=== PATIENT | female | born 1970 | race Caucasian/White ===

== ENCOUNTER 2019-10-24 07:35 | Outpatient (CLI) | payer OTHER, SELFPAY ==
--- NOTE | ~2019-10-24 | MM_ITS ---
EXAMINATION: MM screening kala BI w macho HISTORY: Screening TECHNIQUE: Craniocaudal and mediolateral oblique 3-D tomosynthesis images were obtained and synthetic 2-D images were generated. CAD analysis was submitted and interpreted. COMPARISON: Comparison to multiple prior studies sequentially, with oldest reviewed study dated 05/18. BREAST PARENCHYMAL COMPOSITION: The breasts are heterogeneously dense, which may obscure small masses . FINDINGS: There is no evidence of suspicious mass, calcification, or architectural distortion to sugg est malignancy in either breast. There has been no suspicious interval change. IMPRESSION: 1. No mammographic evidence of malignancy. 2. Recommend routine screening mammography in one year. BI-RADS Category 1: Negative Reviewed, dictated and finalized at location A.
== END 2019-10-24 07:36 | disposition home or self-care (01) ==
PROVIDERS: PCP Family Medicine; Visit Provider Physician Assistant
DX: Z12.31 Encounter for screening mammogram for malignant neoplasm of breast (principal)
CPT/HCPCS: 77063; 77067

== ENCOUNTER → 2020-06-09 03:43 | Outpatient (CLI) | payer OTHER, SELFPAY ==
[2020-06-09 20:31] LABS: SARS-CoV-2 RNA PCR Negative
== END ==
PROVIDERS: PCP Family Medicine; Visit Provider Internal Medicine Gastroenterology
DX: Z01.812 Encounter for preprocedural laboratory examination (principal); Z20.822 Contact with and (suspected) exposure to COVID-19
CPT/HCPCS: C9803; U0003; U0005

== ENCOUNTER 2020-06-12 01:40 | Day surgery (SDC) | payer OTHER, SELFPAY ==
[2020-06-03 15:22] VITALS: BMI 21.6
[2020-06-12 09:22] VITALS: BP 115/50; PULSE 66; RESP 16; TEMP 36.5; O2SAT 100; BMI 21.2
--- NOTE | 2020-06-12 09:38 | WPDANESEPPF ---
Anes - Initial Pre Proc Eval Procedure: Operation Date: 06/12/20 10:30 Proposed Procedures p Screening Colonoscopy - French Gresham MD Date/Time: 06/12/20 09:38 Surgeon: French Gresham MD Pre Op Diagnosis: neoplasm screening Patient Data Age: 49 Gender: F Height: 5 ft 5 in Weight: 57.9 kg Last Vital Signs Temp 97.7 F 06/12/20 09:22 Pulse 66 06/12/20 09:22 Resp 16 06/12/20 09:22 BP 115/50 L 06/12/20 09:22 Pulse Ox 100 06/12/20 09:22 Allergies Allergy/AdvReac Type Severity Reaction Status Date / Time No Known Allergies Allergy Mild Verified 06/12/20 09:21 Home Medications Medication Instructions Recorded Confirmed Type No Home Medications 09/23/19 06/12/20 History Patient hx anesthesia problems: none Family hx anesthesia problems: none PMFSH Past Medical History Medical History (Updated 06/12/20 @ 09:34 by Francis Carrion MD) Healthy adult Family History Family History Sibling Depression Grandparent Family history of Alzheimer's disease Social History Social History Smoking status: Never smoker Alcohol intake: current Drinks per week: 4 Substance use type: does not use Living arrangements: with family Gender identity (if verbalized by the patient): Female Spiritual care concerns: No Anes - Eval Final PreProcedure Day of Procedure 06/12/20 09:38 Patient weight: normal Heart: regular rate and rhythm Lungs: clear to auscultation Airway: Mallampati scale class II Neurological: alert and oriented Last oral intake: >/= 8 hours ASA classification: I Emergent: no Anesthetic plan: proceed Anesthesia type and monitoring: general GIVS and standard monitoring Informed Consent: The patient's anesthetic plan and its attendant risks and benefits were discussed with the patient/family/POA. Questions were solicited and answers provided to the satisfaction of the patient/family/POA.
[2020-06-12] MEDS: LACTATED RINGERS 1,000 ML 150 ML IV CONT (09:41)
--- NOTE | 2020-06-12 09:51 | PM.HPGS ---
History of Present Illness History of Present Illness Consent: Risks, benefits, and alternatives have been discussed and questions answered. Patient agrees to proceed with procedure. Chief complaint: neoplasm screening Narrative: Marita Ríos is a 49 year old female Referred for colon cancer screening. She is not aware of any family history of colon cancer or other colon diseases Review of Systems Review of Systems: All systems reviewed & are unremarkable except as noted in HPI and below PMFSH Past Medical History Medical History Healthy adult Family History Family History Sibling Depression Grandparent Family history of Alzheimer's disease Social History Social History Smoking status: Never smoker Alcohol intake: current Drinks per week: 4 Substance use type: does not use Living arrangements: with family Gender identity (if verbalized by the patient): Female Spiritual care concerns: No Meds Home Medications and Allergies Home Medications Medication Instructions Recorded Confirmed Type No Home Medications 09/23/19 06/12/20 History Allergies Allergy/AdvReac Type Severity Reaction Status Date / Time No Known Allergies Allergy Mild Verified 06/12/20 09:21 Vital Signs Vital Signs - 24 hr 06/12/20 09:22 Temperature 36.5 C Pulse Rate 66 Respiratory Rate 16 Blood Pressure 115/50 L Pulse Oximetry 100 Exam Resp: Auscultation: clear to auscultation bilaterally Cardio: Rate: regular rate Rhythm: regular rhythm GI: GI Palp: Yes Soft to palpation and No Tenderness to palpation present (GI) Assessment and Plan Assessment and plan (1) Colon cancer screening: Code(s): Z12.11 - Encounter for screening for malignant neoplasm of colon Status: Acute Assessment and Plan: Colonoscopy with possible biopsy or polypectomy or cautery or injection of substances.
[2020-06-12 10:51] VITALS: BP 79/44; PULSE 66; RESP 16; O2SAT 100
[2020-06-12 11:01] VITALS: BP 78/42; PULSE 64; RESP 16; O2SAT 100
[2020-06-12 11:11] VITALS: BP 88/52; PULSE 63; RESP 16; O2SAT 100
== END 2020-06-12 11:27 | disposition home or self-care (01) ==
PROVIDERS: PCP Family Medicine; Visit Provider Internal Medicine Gastroenterology
PROC: 0DJD8ZZ Inspection of Lower Intestinal Tract, Via Natural or Artificial Opening Endoscopic (ICD-10-PCS; CPT 45378; principal; 2020-06-12 10:30)
DX: Z12.11 Encounter for screening for malignant neoplasm of colon (principal); K57.30 Diverticulosis of large intestine without perforation or abscess without bleeding
CPT/HCPCS: 45378; J2704; J7120

== ENCOUNTER 2023-02-15 00:33 | Day surgery (SDC) | payer BC, SELFPAY ==
[2023-02-06 15:38] VITALS: BMI 21.1
--- NOTE | 2023-02-06 15:43 | PC.NURSE ---
Report to the Outpatient Waiting Room, entrance under the green pavilion located off [facility], at time _0630_ on date _[id number]_. Planned Procedure Time: _0830_. Time changes happen often and if your time is changed the preop area will call you the afternoon before. - You and your visitor will be asked to self-screen and do not enter if you have any COVID symptoms. - A mask is optional within the hospital at this time. Patients may have clear liquids (water, carbonated beverages, clear teas, apple juice) until 3 hours prior to surgery with a maximum of 20 ounces. - No food from midnight until time of surgery Patient acknowledges having instructions from Dr Marin's office for laxative and enema's. Take the following medications with a SIP of water the morning of surgery: ____None DO NOT STOP ANY OF YOUR OTHER PRESCRIPTION MEDICATIONS PRIOR TO SURGERY ?EXCEPT THE FOLLOWING Medications to discontinue per physician ____None Date to take last dose Please no make-up, nail australian, hairspray, perfume, deodorant, or body powder the day of surgery. No jewelry (including any body piercings) or valuables the day of surgery, leave them at home. Please take a shower or bath the night before, or the morning of, surgery with an antibacterial soap. Wear comfortable, loose fitting clothing. - Jewelry must be removed prior to entering the operating room. Rings and piercings that are not removed may be cut off. - The hospital will not accept responsibility for valuables. - Please leave all valuables, including medications, at home the day of surgery. If you are going home after surgery, a licensed box truck driver must drive you home. - NO public transportation without another adult if you receive anesthesia. - We recommend that an adult stay with you for 24 hours following discharge. - We also recommend that you do not drive, make important decision, drink alcoholic beverages, or take any drugs that were not prescribed by your health care provider for at least 24 hours after your discharge time. Follow any additional instructions given to you from your surgeon. If you or anyone in your household have experienced Covid symptoms in the past week, please notify your surgeon or the nurse liaison at the phone number below for possible testing. Telephone instructions given to _Marita__and asked if any additional questions and then verbalized understanding. Patient advised to call surgeon office or pre surgery nurse liaison [phone] if any additional questions.0
--- NOTE | 2023-02-14 17:03 | PM.SD2 ---
Same Day Admit/Disch: HPI History of Present Illness Chief complaint: prolapsed internal and external hemorrhoids Narrative: Marita Ríos is a 52 year old female who has had hemorrhoids for quite a long time. She notes protruding anal tissue which is not painful and does not bleed but is very difficult to keep clean. She is seen in the office and found to have a right anterior complex of internal and external hemorrhoids. She is taken to surgery now for excision. [facility] Past Medical History Medical History Abdominal pain Alternating constipation and diarrhea Migraine with aura, not intractable, without status migrainosus Family History Family History Sibling Depression Grandparent Family history of Alzheimer's disease Social History Social History Smoking status: Never smoker Alcohol intake: current Drinks per week: 8 Substance use: never Substance use type: does not use Lack of Transportation: No Lack of Food: Never True Current Housing: I Have Housing Concerned About Future Housing: No Difficulty Paying Gas/Electric Bills: No Difficulty Paying for Meds: No Currently Unemployed: No Education: Master's Degree or Higher Difficulty w/ Childcare or Family Care: No Living arrangements: with family Gender identity (if verbalized by the patient): Female Spiritual care concerns: No Same Day Admit/Disch: Med Pre-admit Medications Home Medications Medication Instructions Recorded Confirmed Type ketorolac 10 mg tablet 10 mg PO Q6H 4 days #16 tabs 02/15/23 Rx oxycodone-acetaminophen 5 mg-325 0.5 - 1 tablet PO Q6H PRN pain #10 02/15/23 Rx mg tablet tabs Review of Systems Review of Systems All systems reviewed & are unremarkable except as noted in HPI and below (HPI and those items noted below) Constitutional Constitutional: Denies chills and Denies fever(s) Cardiovascular Cardiovascular: Denies chest pain, Denies diaphoresis, Denies dyspnea and Denies paroxysmal nocturnal dyspnea Respiratory Respiratory: Denies chest congestion, Denies cough and Denies dyspnea Integumentary/Breasts Skin/Breast: Denies lesions and Denies rash Exam Const: General: comfortable, no acute distress, alert and awake HENMT: Head: normocephalic and atraumatic Mouth: Yes Normal oral and palatal mucosa present Eyes: Conjunctivae: conjunctivae normal Pupils: Equal, round and reactive pupils present EOM: EOMs intact bilaterally Neck: Neck: normal visual inspection, no lymphadenopathy and nontender Resp: Effort & Inspection: normal respiratory effort Auscultation: clear to auscultation bilaterally Cardio: Rate: regular rate Rhythm: regular rhythm Heart sounds: no gallops, no murmurs and no rubs GI: Inspection: non-distended GI Palp: Yes Soft to palpation, No Tenderness to palpation present (GI), No Hepatomegaly present and No Splenomegaly present Rectal Exam: normal sphincter tone, No heme positive stool, hemorrhoids (Chronically prolapsed right anterior quadrant of int with ext hemorrhoids), No mass and No tenderness Skin: Lesions: no lesions Rashes: no rashes Neuro: General: no focal motor deficits and CN's II-XI intact bilaterally Cranial nerves: Yes Equal, round and reactive pupils present, Yes Bilaterally intact EOM present, Yes facial symmetry and Yes Midline tongue present Speech: normal speech Motor exam (neuro): 5/5 motor strength present throughout and Motor abnormalities not present Extrem: General: no clubbing, cyanosis or edema and edema Psych: Affect: normal affect Thought process: Normal thought process present Insight: Good insight present (Psych) DS: Summary Time Spent with Patient Time attestation: Total time spent providing and/or coordinating discharge services: DS: Admitting Diagnosis Di
--- NOTE | 2023-02-15 08:01 | WPDHPUPDATE1 ---
History and Physical Update Update Date/Time: 02/15/23 08:01 History and Physical has been reviewed, including an updated exam of the patient. There are NO changes in the patient's condition. Risks, benefits, and alternatives have been discussed and questions answered. Patient agrees to proceed with procedure.
[2023-02-15 09:30] VITALS: BP 99/67; PULSE 62; RESP 18; TEMP 36.4; O2SAT 100
[2023-02-15] MEDS: LACTATED RINGERS 1,000 ML 30 ML IV CONT ×2 (09:50→11:36)
[2023-02-15] MEDS: KETOROLAC 15 MG/ML VIAL (*BKC) IV PUSH (09:51)
[2023-02-15] MEDS: ACETAMINOPHEN 500 MG TABLET 1000 MG PO (09:51)
--- NOTE | 2023-02-15 09:54 | P.PNAN_ITS ---
Anes - Initial Pre Proc Eval Procedure: Operation Date: 02/15/23 11:30 Proposed Procedures p Excision Single Column Internal and External Hemorrhoids - Tomy Marin MD Date/Time: 02/15/23 09:54 Surgeon: Tomy Marin MD Pre Op Diagnosis: prolapsed internal and external hemorrhoids Patient Data Age: 52 Gender: F Height: 1.64 m Weight: 56.95 kg Last Vital Signs Temp 36.4 C 02/15/23 09:30 Pulse 62 02/15/23 09:30 Resp 18 02/15/23 09:30 BP 99/67 L 02/15/23 09:30 Pulse Ox 100 02/15/23 09:30 O2 Del Method Room Air 02/15/23 09:30 Allergies Allergy/AdvReac Type Severity Reaction Status Date / Time No Known Allergies Allergy Mild Verified 02/15/23 09:33 Home Medications Medication Instructions Recorded Confirmed Type No Home Medications 12/28/22 02/15/23 History Patient hx anesthesia problems: none Family hx anesthesia problems: none Results Review: All pre-operative results and documents have been reviewed as part of the pre- operative evaluation. [facility] Past Medical History Medical History Abdominal pain Alternating constipation and diarrhea Migraine with aura, not intractable, without status migrainosus Family History Family History Sibling Depression Grandparent Family history of Alzheimer's disease Social History Social History Smoking status: Never smoker Alcohol intake: current Drinks per week: 8 Substance use: never Substance use type: does not use Lack of Transportation: No Lack of Food: Never True Current Housing: I Have Housing Concerned About Future Housing: No Difficulty Paying Gas/Electric Bills: No Difficulty Paying for Meds: No Currently Unemployed: No Education: Master's Degree or Higher Difficulty w/ Childcare or Family Care: No Living arrangements: with family Gender identity (if verbalized by the patient): Female Spiritual care concerns: No Anes - Eval Final PreProcedure Day of Procedure 02/15/23 09:54 Patient weight: normal Heart: regular rate and rhythm Lungs: clear to auscultation Airway: Mallampati scale class II Neurological: alert and oriented Last oral intake: >/= 8 hours ASA classification: II Emergent: no Anesthetic plan: proceed Anesthesia type and monitoring: general LMA and standard monitoring Results Review: All pre-operative results and documents have been reviewed as part of the pre- operative evaluation. Informed Consent: The patient's anesthetic plan and its attendant risks and benefits were discussed with the patient/family/POA. Questions were solicited and answers provided to the satisfaction of the patient/family/POA.
[2023-02-15] MEDS: SCOPOLAMINE 1 MG PATCH 1 PATCH TRANSDERM (10:04)
[2023-02-15] MEDS: ceFAZolin 2 GM/D5W 50 ML 2 GM/50 ML BAG IVPB (10:56)
[2023-02-15] MEDS: BUPIVACAINE/EPINEPHRINE 0.5% 50 ML VIAL INFILTRATE (11:16)
[2023-02-15 11:36] VITALS: BP 92/44; PULSE 70; RESP 12; O2SAT 98
--- NOTE | 2023-02-15 11:40 | W.PM.PROC2 ---
Procedure Note - Detailed Date of Procedure 02/15/23 Pre-op Diagnosis prolapsed internal and external hemorrhoids Post-op Diagnosis Same Procedure Performed Excision right anterior column internal and external hemorrhoids Surgeon Tomy Marin MD [employer] Farias MOLECULAR BIOLOGY DIRECTOR Anesthesia MAC and Local (0.5% Marcaine with epinephrine) Indications Patient has had chronic protruding hemorrhoids which are a hygiene issue. She has really not had bleeding or pain with them. She was seen in the office and found to have a prolapsed, stage for internal hemorrhoid associated with a large external hemorrhoid. She is taken to surgery now for excision Findings Internal and external hemorrhoids as above, only single column. No other internal hemorrhoids noted. Description of Procedure Patient was taken to surgery and placed in prone kimi-knife position. Anesthesia was introduced. Prep and drape was carried out. Inspection of the anal canal was carried out 1st. No other pathology other than the prolapsed internal and external hemorrhoid in the right anterior quadrant. Local anesthetic was infiltrated in the perianal area. 20 cc was infiltrated deep subcutaneous. 20 cc was infiltrated intrasphincteric. The right anterior hemorrhoidal complex was exposed. The complex was excised and sent off to pathology. The wound was closed with running 3-0 chromic suture. Repeat examination of the anal canal was carried out. The wound was hemostatic and no other pathology was found. The rectum was dressed with Xeroform gauze fluffs and Promise panties. Patient was returned to supine position and awakened. She was taken to outpatient surgery in good condition. Sponge and needle counts were correct x2. Estimated Blood Loss -5 Drains No Packing No Pathology Yes (Right anterior complex internal and external hemorrhoids.) Complications No immediate complications Condition Stable Disposition Same day [facility] Billing Surgery - Charge Forward: Surgery Billing (Excision single column internal and external hemorrhoids)
[2023-02-15 12:05] VITALS: BP 86/67; PULSE 54; RESP 18
[2023-02-15 12:35] VITALS: BP 81/45; PULSE 57
[2023-02-15 13:05] VITALS: BP 86/44; PULSE 54
[2023-02-15 13:35] VITALS: BP 87/57; PULSE 69
== END 2023-02-15 13:50 | disposition home or self-care (01) ==
PROVIDERS: PCP Family Medicine; Visit Provider Surgery
PROC: (CPT 46255; principal; 2023-02-15 11:30)
DX: K64.4 Residual hemorrhoidal skin tags (principal)
CPT/HCPCS: 46255; 88304; A9270; J0690; J1885; J2250; J2371; J2405; J2704; J3010; J7120

== ENCOUNTER 2023-05-15 15:32 | Outpatient (CLI) | payer BC, SELFPAY ==
--- NOTE | ~2023-05-15 | MM_ITS ---
EXAMINATION: MM screening kala BI w macho HISTORY: Screening mammogram TECHNIQUE: Craniocaudal and mediolateral oblique 3-D tomosynthesis images were obtained and synthetic 2-D images were generated. CAD analysis was submitted and interpreted. COMPARISON: 10/24/2019 bilateral screening mammogram BREAST PARENCHYMAL COMPOSITION: The breasts are heterogeneously dense, which may obscure small masses . FINDINGS: There is no evidence of suspicious mass, calcification, or architectural distortion to sugg est malignancy in either breast. There has been no suspicious interval change. IMPRESSION: 1. No mammographic evidence of malignancy. 2. Recommend routine screening mammography in one year. BI-RADS Category 1: Negative Reviewed, dictated and finalized at location A.
== END 2023-05-15 15:33 | disposition home or self-care (01) ==
LOC: ANHIMG 15:36
PROVIDERS: PCP Family Medicine; Visit Provider Family Medicine
DX: Z12.31 Encounter for screening mammogram for malignant neoplasm of breast (principal)
CPT/HCPCS: 77063; 77067